=== PATIENT | female | born 1980 ===

== ENCOUNTER 2022-08-14 14:14 | Inpatient (IN) ==
[2022-08-14] MEDS ORDERED: SODIUM CHLORIDE 0.9% 1,000 ML IV STA (14:57)
[2022-08-14] MEDS ORDERED: INSULIN REGULAR 100 UNIT/ML IV STA (14:58)
[2022-08-14] MEDS ORDERED: PIPERACILLIN/TAZOBACTAM 3,375 MG in SODIUM CHLORIDE 0.9% 100 ML IV STA (14:59)
[2022-08-14 15:35] LABS: Basophils % 0.2 % (0.0-0.8); Eosinophils # 0.2 10*3/uL (0.0-0.87); Eosinophils % 1.2 % (0.00-10.9); Hematocrit 35.1 VOL% (35.7-47.0); Hemoglobin 11.5 GM/DL (12.0-16.0); Immature Granulocytes % 0.4 %; Immature Granulocytes Absolute 0.05 #; Lymphocytes # 0.6 10*3/uL (1.4-4.0); Lymphocytes % 4.5 % (21.3-54.2); Mean Corpuscular HGB Conc 32.8 GM/DL (32-36); Mean Corpuscular Volume 96.2 FL (87-102); Monocytes # 0.3 10*3/uL (0.11-0.8); Monocytes % 2.5 % (1.7-12.7); Neutrophils % 91.2 % (38.7-73.9); Platelet Count 234 T/CUMM (130-400); Red Blood Count 3.65 MC/CUMM (3.8-5.5); Red Cell Distribution Width 13.4 % (9.3-17.3)
[2022-08-14 15:47] LABS: Blood Urea Nitrogen 19 MG/DL (7-18); Calcium 7.9 MG/DL (8.5-10.1); Carbon Dioxide 27 MMOL/L (21-32); Chloride 99 MMOL/L (98-107); Glucose 343 MG/DL (74-106); Osmolality,Calculated 279.5 MOS/KG (273-304); Potassium 3.9 MMOL/L (3.5-5.1); Sodium 132 MMOL/L (136-145)
[2022-08-14 16:12] LABS: Band Neutrophils 14 % (0-10); Eosinophils 2 % (0-10); Lymphocytes 3 % (20-55); Macrocytosis Slight
[2022-08-14 16:13] LABS: Platelet Estimate Normal; Total Cells Counted 100
[2022-08-14] MEDS ORDERED: ONDANSETRON 4 MG/2 ML VIAL IV PRN (17:21)
[2022-08-14] MEDS ORDERED: GLUCAGON 1 MG VIAL IM PRN (17:21)
[2022-08-14] MEDS ORDERED: LORazepam 2 MG/1 ML VIAL IV PRN (17:24)
[2022-08-14] MEDS ORDERED: DEXTROSE 10% 250 ML BAG IV PRN (17:30)
[2022-08-14] MEDS ORDERED: hydrALAZINE 20 MG/1 ML VIAL IV PRN (17:44)
[2022-08-14] MEDS: LACTATED RINGERS 1,000 ML IV SCH (17:49)
[2022-08-14] MEDS: ACETAMINOPHEN 325 MG TABLET PO PRN (17:53)
[2022-08-14] MEDS: VANCOMYCIN INJ 1,000 MG in SODIUM CHLORIDE 0.9% 250 ML IV SCH (18:34)
[2022-08-14] MEDS: DOCUSATE SODIUM 100 MG CAPSULE PO SCH (20:14)
[2022-08-14] MEDS: INSULIN GLARGINE 100 UNIT/ML SUBCUT SCH (20:15)
[2022-08-14] MEDS: INSULIN REGULAR 100 UNIT/ML SUBCUT SCH (20:17)
[2022-08-14] MEDS: PIPERACILLIN/TAZOBACTAM 3,375 MG in SODIUM CHLORIDE 0.9% 100 ML IV SCH (22:54)
[2022-08-15] MEDS: PIPERACILLIN/TAZOBACTAM 3,375 MG in SODIUM CHLORIDE 0.9% 100 ML IV SCH ×3 (06:24→23:15)
[2022-08-15 06:52] LABS: Calcium 7.4 MG/DL (8.5-10.1); Osmolality,Calculated 275.1 MOS/KG (273-304); Potassium 3.5 MMOL/L (3.5-5.1)
[2022-08-15 07:12] LABS: Basophils % 0.2 % (0.0-0.8); Eosinophils # 0.1 10*3/uL (0.0-0.87); Eosinophils % 0.8 % (0.00-10.9); Hematocrit 29.9 VOL% (35.7-47.0); Immature Granulocytes % 0.5 %; Immature Granulocytes Absolute 0.04 #; Lymphocytes # 0.9 10*3/uL (1.4-4.0); Lymphocytes % 10.5 % (21.3-54.2); Mean Corpuscular HGB Conc 33.4 GM/DL (32-36); Mean Corpuscular Volume 95.5 FL (87-102); Mean Platelet Volume 12.4 FL (9.6-12.0); Monocytes # 0.3 10*3/uL (0.11-0.8); Monocytes % 3.2 % (1.7-12.7); Neutrophils % 84.8 % (38.7-73.9); Platelet Count 173 T/CUMM (130-400); Red Blood Count 3.13 MC/CUMM (3.8-5.5); Red Cell Distribution Width 13.6 % (9.3-17.3); White Blood Count 8.6 T/CUMM (4-12)
[2022-08-15] MEDS: VANCOMYCIN INJ 1,000 MG in SODIUM CHLORIDE 0.9% 250 ML IV SCH (11:50)
[2022-08-15] MEDS: DOCUSATE SODIUM 100 MG CAPSULE PO SCH ×2 (11:51→20:36)
[2022-08-15] MEDS: THIAMINE 100 MG TABLET PO SCH (11:51)
[2022-08-15] MEDS: FOLIC ACID 1 MG TABLET PO SCH (11:51)
[2022-08-15] MEDS: MULTIVITAMIN (CENTRUM) TABLET PO SCH (11:51)
[2022-08-15] MEDS: INSULIN REGULAR 100 UNIT/ML SUBCUT SCH ×4 (12:12→20:37)
[2022-08-15] MEDS: ACETAMINOPHEN 325 MG TABLET PO PRN (18:26)
[2022-08-15] MEDS: LACTATED RINGERS 1,000 ML IV SCH ×2 (20:38→21:48)
[2022-08-15] MEDS: INSULIN GLARGINE 100 UNIT/ML SUBCUT SCH (20:38)
[2022-08-16] MEDS: VANCOMYCIN INJ 1,000 MG in SODIUM CHLORIDE 0.9% 250 ML IV SCH (05:18)
[2022-08-16] MEDS ORDERED: PROMETHAZINE INJ 25 MG in SODIUM CHLORIDE 0.9% 50 ML IV PRN (06:27)
[2022-08-16] MEDS ORDERED: diphenhydrAMINE 50 MG/1 ML VIAL IV PRN (06:27)
[2022-08-16] MEDS ORDERED: ONDANSETRON 4 MG/2 ML VIAL IV PRN (06:27)
[2022-08-16] MEDS ORDERED: HYDROmorphone 1 MG/1 ML SYRINGE IV PRN (06:27)
[2022-08-16] MEDS ORDERED: MEPERIDINE 25 MG/1 ML VIAL IV PRN (06:27)
[2022-08-16 06:37] LABS: Basophils % 0.3 % (0.0-0.8); Eosinophils # 0.7 10*3/uL (0.0-0.87); Hematocrit 28.7 VOL% (35.7-47.0); Hemoglobin 9.4 GM/DL (12.0-16.0); Immature Granulocytes % 0.3 %; Immature Granulocytes Absolute 0.02 #; Lymphocytes # 1.4 10*3/uL (1.4-4.0); Lymphocytes % 20.1 % (21.3-54.2); Mean Corpuscular HGB Conc 32.8 GM/DL (32-36); Mean Corpuscular Volume 96.6 FL (87-102); Mean Platelet Volume 12.3 FL (9.6-12.0); Monocytes # 0.5 10*3/uL (0.11-0.8); Monocytes % 6.8 % (1.7-12.7); Neutrophils % 62.5 % (38.7-73.9); Platelet Count 143 T/CUMM (130-400); Red Blood Count 2.97 MC/CUMM (3.8-5.5); Red Cell Distribution Width 13.5 % (9.3-17.3); White Blood Count 6.8 T/CUMM (4-12)
[2022-08-16] MEDS ORDERED: MIDAZOLAM 2 MG/2 ML VIAL ONE (06:40)
[2022-08-16] MEDS ORDERED: LIDOCAINE 2% 5 ML VIAL ONE (06:40)
[2022-08-16] MEDS ORDERED: propofoL 200 MG/20 ML VIAL IV ONE (06:40)
[2022-08-16] MEDS ORDERED: fentaNYL 100 MCG/2 ML VIAL ONE (06:41)
[2022-08-16] MEDS ORDERED: ONDANSETRON 4 MG/2 ML VIAL ONE (06:45)
[2022-08-16 06:52] LABS: Calcium 7.6 MG/DL (8.5-10.1); Osmolality,Calculated 282.4 MOS/KG (273-304); Potassium 3.5 MMOL/L (3.5-5.1)
[2022-08-16] MEDS: INSULIN REGULAR 100 UNIT/ML SUBCUT SCH ×4 (07:26→21:03)
[2022-08-16] MEDS ORDERED: BUPIVACAINE MPF 0.25% 10 ML VIAL ONE (08:00)
[2022-08-16] MEDS ORDERED: LIDOCAINE 1% 5 ML VIAL ONE (08:00)
[2022-08-16] MEDS ORDERED: DEXAMETHASONE 4 MG/1 ML VIAL ONE (08:02)
[2022-08-16] MEDS ORDERED: SEVOFLURANE 1 UNIT/15 MINUTE INH ONE (08:31)
[2022-08-16] MEDS: LACTATED RINGERS 1,000 ML IV SCH ×3 (08:53→18:41)
[2022-08-16] MEDS: PIPERACILLIN/TAZOBACTAM 3,375 MG in SODIUM CHLORIDE 0.9% 100 ML IV SCH ×3 (08:53→23:06)
[2022-08-16] MEDS: MULTIVITAMIN (CENTRUM) TABLET PO SCH (10:51)
[2022-08-16] MEDS: DOCUSATE SODIUM 100 MG CAPSULE PO SCH ×2 (10:51→21:00)
[2022-08-16] MEDS: THIAMINE 100 MG TABLET PO SCH (10:52)
[2022-08-16] MEDS: FOLIC ACID 1 MG TABLET PO SCH (10:52)
[2022-08-16] MEDS: INSULIN GLARGINE 100 UNIT/ML SUBCUT SCH (21:01)
[2022-08-17] MEDS: VANCOMYCIN INJ 1,000 MG in SODIUM CHLORIDE 0.9% 250 ML IV SCH (00:41)
[2022-08-17] MEDS: LACTATED RINGERS 1,000 ML IV SCH ×3 (04:46→18:34)
[2022-08-17 04:48] LABS: Basophils % 0.2 % (0.0-0.8); Eosinophils # 0.4 10*3/uL (0.0-0.87); Eosinophils % 3.8 % (0.00-10.9); Hematocrit 27.5 VOL% (35.7-47.0); Hemoglobin 8.9 GM/DL (12.0-16.0); Immature Granulocytes % 0.4 %; Immature Granulocytes Absolute 0.04 #; Lymphocytes # 1.8 10*3/uL (1.4-4.0); Lymphocytes % 18.6 % (21.3-54.2); Mean Corpuscular HGB Conc 32.4 GM/DL (32-36); Mean Corpuscular Volume 97.9 FL (87-102); Mean Platelet Volume 11.9 FL (9.6-12.0); Monocytes # 0.7 10*3/uL (0.11-0.8); Monocytes % 7.5 % (1.7-12.7); Neutrophils % 69.5 % (38.7-73.9); Platelet Count 142 T/CUMM (130-400); Red Blood Count 2.81 MC/CUMM (3.8-5.5); Red Cell Distribution Width 13.5 % (9.3-17.3); White Blood Count 9.9 T/CUMM (4-12)
[2022-08-17 05:15] LABS: Calcium 7.7 MG/DL (8.5-10.1); Potassium 3.3 MMOL/L (3.5-5.1)
[2022-08-17] MEDS: PIPERACILLIN/TAZOBACTAM 3,375 MG in SODIUM CHLORIDE 0.9% 100 ML IV SCH (06:49)
[2022-08-17] MEDS: DOCUSATE SODIUM 100 MG CAPSULE PO SCH ×2 (10:15→22:11)
[2022-08-17] MEDS: FOLIC ACID 1 MG TABLET PO SCH (10:15)
[2022-08-17] MEDS: THIAMINE 100 MG TABLET PO SCH (10:15)
[2022-08-17] MEDS: MULTIVITAMIN (CENTRUM) TABLET PO SCH (10:15)
[2022-08-17] MEDS: INSULIN REGULAR 100 UNIT/ML SUBCUT SCH ×4 (10:47→22:11)
[2022-08-17] MEDS ORDERED: DEXTROSE 50% 25 GM/50 ML VIAL IV PRN (11:09)
[2022-08-17] MEDS ORDERED: GLUCAGON 1 MG VIAL IM PRN (11:09)
[2022-08-17] MEDS ORDERED: VANCOMYCIN INJ 1,000 MG in SODIUM CHLORIDE 0.9% 250 ML IV SCH (12:00)
[2022-08-17] MEDS ORDERED: POTASSIUM CHLORIDE 20 MEQ TABLET PO ONE (12:30)
[2022-08-17] MEDS: MORPHINE 2 MG/1 ML SYRINGE IV PRN ×2 (12:41→18:02)
[2022-08-17] MEDS: cefTRIAXone 1,000 MG in SODIUM CHLORIDE 0.9% 100 ML IV SCH (13:45)
[2022-08-17] MEDS: metFORMIN 500 MG TABLET PO SCH (17:26)
[2022-08-17] MEDS: ENOXAPARIN 40 MG/0.4 ML SYRINGE SUBCUT SCH (17:26)
[2022-08-18] MEDS: MORPHINE 2 MG/1 ML SYRINGE IV PRN (05:14)
[2022-08-18 05:38] LABS: Basophils % 0.3 % (0.0-0.8); Eosinophils # 0.6 10*3/uL (0.0-0.87); Eosinophils % 8.1 % (0.00-10.9); Hematocrit 27.7 VOL% (35.7-47.0); Immature Granulocytes % 0.4 %; Immature Granulocytes Absolute 0.03 #; Lymphocytes # 2.2 10*3/uL (1.4-4.0); Lymphocytes % 28.7 % (21.3-54.2); Mean Corpuscular HGB Conc 32.5 GM/DL (32-36); Mean Corpuscular Volume 98.6 FL (87-102); Monocytes # 0.6 10*3/uL (0.11-0.8); Monocytes % 7.9 % (1.7-12.7); Neutrophils % 54.6 % (38.7-73.9); Platelet Count 150 T/CUMM (130-400); Red Blood Count 2.81 MC/CUMM (3.8-5.5); Red Cell Distribution Width 13.7 % (9.3-17.3); White Blood Count 7.6 T/CUMM (4-12)
[2022-08-18 06:06] LABS: Osmolality,Calculated 279.8 MOS/KG (273-304); Potassium 3.9 MMOL/L (3.5-5.1)
[2022-08-18] MEDS ORDERED: GLIMEPIRIDE 2 MG TABLET PO SCH (08:00)
[2022-08-18] MEDS ORDERED: DAPAGLIFLOZIN 5 MG TABLET PO SCH (09:00)
[2022-08-18] MEDS: MULTIVITAMIN (CENTRUM) TABLET PO SCH (09:46)
[2022-08-18] MEDS: THIAMINE 100 MG TABLET PO SCH (09:46)
[2022-08-18] MEDS: metFORMIN 500 MG TABLET PO SCH ×2 (09:46→16:22)
[2022-08-18] MEDS: INSULIN REGULAR 100 UNIT/ML SUBCUT SCH ×4 (09:46→21:42)
[2022-08-18] MEDS: FOLIC ACID 1 MG TABLET PO SCH (09:46)
[2022-08-18] MEDS: DOCUSATE SODIUM 100 MG CAPSULE PO SCH ×2 (09:48→21:41)
[2022-08-18] MEDS: LACTATED RINGERS 1,000 ML IV SCH (09:48)
[2022-08-18] MEDS: cefTRIAXone 1,000 MG in SODIUM CHLORIDE 0.9% 100 ML IV SCH (14:09)
[2022-08-18] MEDS: ENOXAPARIN 40 MG/0.4 ML SYRINGE SUBCUT SCH (16:22)
[2022-08-18] MEDS ORDERED: amLODIPine 5 MG TABLET PO ONE (19:28)
[2022-08-19 06:06] LABS: Basophils % 0.3 % (0.0-0.8); Eosinophils # 0.5 10*3/uL (0.0-0.87); Eosinophils % 6.8 % (0.00-10.9); Hematocrit 27.6 VOL% (35.7-47.0); Hemoglobin 9.3 GM/DL (12.0-16.0); Immature Granulocytes % 0.4 %; Immature Granulocytes Absolute 0.03 #; Lymphocytes # 2.4 10*3/uL (1.4-4.0); Mean Corpuscular HGB Conc 33.7 GM/DL (32-36); Mean Corpuscular Volume 96.5 FL (87-102); Monocytes # 0.6 10*3/uL (0.11-0.8); Monocytes % 7.8 % (1.7-12.7); Neutrophils % 51.7 % (38.7-73.9); Platelet Count 178 T/CUMM (130-400); Red Blood Count 2.86 MC/CUMM (3.8-5.5); Red Cell Distribution Width 13.6 % (9.3-17.3); White Blood Count 7.4 T/CUMM (4-12)
[2022-08-19 06:20] LABS: Calcium 8.3 MG/DL (8.5-10.1); Potassium 3.8 MMOL/L (3.5-5.1)
[2022-08-19] MEDS ORDERED: CHOLECALCIFEROL 1,000 UNIT TABLET PO SCH (09:00)
[2022-08-19] MEDS ORDERED: amLODIPine 5 MG TABLET PO SCH (09:00)
[2022-08-19] MEDS ORDERED: DAPAGLIFLOZIN 10 MG TABLET PO SCH (09:00)
[2022-08-19] MEDS: DOCUSATE SODIUM 100 MG CAPSULE PO SCH (09:14)
[2022-08-19] MEDS: THIAMINE 100 MG TABLET PO SCH (09:14)
[2022-08-19] MEDS: MULTIVITAMIN (CENTRUM) TABLET PO SCH (09:14)
[2022-08-19] MEDS: metFORMIN 500 MG TABLET PO SCH (09:14)
[2022-08-19] MEDS: FOLIC ACID 1 MG TABLET PO SCH (09:14)
[2022-08-19] MEDS ORDERED: lisinopriL 10 MG TABLET PO SCH (09:30)
[2022-08-19] MEDS: INSULIN REGULAR 100 UNIT/ML SUBCUT SCH ×2 (09:34→11:08)
[2022-08-19] MEDS: cefTRIAXone 1,000 MG in SODIUM CHLORIDE 0.9% 100 ML IV SCH (13:40)
[2022-08-19 15:32] VITALS: BP 173/97
[2022-08-19] MEDS ORDERED: CEFUROXIME 500 MG TABLET PO SCH (17:00)
== END 2022-08-19 16:05 | disposition home or self-care (01) | DRG 256 ==
LOC: N.ED 14:14 → SUATTDRO 17:20 → N.3E 17:20
PROVIDERS: ADMIT Family Medicine; ATTEND Hospitalist